=== PATIENT | male | born 1945 ===

== ENCOUNTER 2023-08-30 20:49 | Outpatient (REF) | payer MEDICARE, SELFPAY ==
[2023-08-30 20:58] LABS: Source Nasal/Nares
[2023-08-30 21:48] LABS: COVID-19 PCR Negative (Negative)
== END 2023-08-30 20:50 | disposition home or self-care (01) ==
LOC: LBN 20:49
PROVIDERS: Visit Provider Physician Assistant Medical
DX: R05.8 Other specified cough (principal); Z20.822 Contact with and (suspected) exposure to COVID-19
CPT/HCPCS: 87635